=== PATIENT | female | born 1950 | race Caucasian/White ===

== ENCOUNTER 2017-09-26 12:39 | Outpatient (CLI) | payer MEDICARE ==
[2017-09-26 18:52] LABS: ALBUMIN 4.1 g/dL (3.2-5.5); ALBUMIN/GLOBULIN RATIO 1.2 (1.0-2.2); BILIRUBIN,TOTAL 0.4 mg/dL (0.2-1.0); CALCIUM 9.4 mg/dL (8.5-10.3); CREATININE 0.9 mg/dL (0.4-1.0); TOTAL PROTEIN 7.6 g/dL (6.7-8.2)
[2017-09-26 19:05] LABS: BASOPHILS # (AUTO) 0.1 10^3/uL (0.0-0.1); BASOPHILS % (AUTO) 0.8 %; EOSINOPHILS # (AUTO) 0.2 10^3/uL (0.0-0.7); EOSINOPHILS % (AUTO) 1.7 %; HGB - HEMOGLOBIN 13.7 g/dL (12.0-16.0); LYMPHOCYTES # (AUTO) 2.2 10^3/uL (1.5-3.5); LYMPHOCYTES % (AUTO) 24.4 %; MEAN CORPUSCULAR HEMOGLOBIN 31.1 pg (27.0-31.0); MEAN CORPUSCULAR HGB CONC 32.8 g/dL (32.0-36.0); MEAN CORPUSCULAR VOLUME 94.9 fL (81.0-99.0); MEAN PLATELET VOLUME 8.2 fL (7.9-10.8); MONOCYTES # (AUTO) 0.5 10^3/uL (0.0-1.0); MONOCYTES % (AUTO) 5.6 %; NEUTROPHILS # (AUTO) 6.1 10^3/uL (1.5-6.6); NEUTROPHILS % (AUTO) 67.5 %; PLT - PLATELET COUNT 257 10^3/uL (130-450); RED BLOOD COUNT 4.42 10^6/uL (4.20-5.40); RED CELL DISTRIBUTION WIDTH 13.8 % (12.0-15.0); WHITE BLOOD COUNT 9.1 x10^3/uL (4.8-10.8)
== END 2017-09-26 12:40 | disposition home or self-care (01) ==
LOC: LAB.F 12:39
PROVIDERS: ATTEND Physician Assistant Medical
DX: Z51.81 Encounter for therapeutic drug level monitoring (principal); Z79.899 Other long term (current) drug therapy
CPT/HCPCS: 36415; 80053; 85025

== ENCOUNTER 2017-09-26 15:25 | Outpatient (CLI) | payer MEDICARE, OTHER ==
--- NOTE | 2017-09-29 09:55 | XRAY Report ---
EXAM: LEFT KNEE RADIOGRAPHY EXAM DATE: 09/26/2017 03:52 PM. CLINICAL HISTORY: Knee joint pain, left. COMPARISON: None. TECHNIQUE: 3 views. FINDINGS: Bones: No fractures or bony destructive lesions. Joints: There is mild to moderate diminishment of joint space with small to moderate amount of knee j oint effusion. No subluxations. Soft Tissues: There is mild soft tissue swelling or thickening along the lateral collateral ligament. There are also 2 small calcified bodies over the upper part of the left lateral collateral ligaments . IMPRESSION: 1. Mild to moderate osteoarthritis with small to moderate amount of knee joint fusion. 2. Soft tissue swelling or thickening along the lateral collateral ligament, suggesting soft tissue i njury and also 2 small degenerated calcified bodies abutting the upper part of the lateral collateral ligament. [facility] Referring Provider Line: [phone] SITE ID: [id number]
== END 2017-09-26 15:26 | disposition home or self-care (01) ==
LOC: DI.S 15:25
PROVIDERS: ATTEND Physician Assistant Medical
DX: M17.12 Unilateral primary osteoarthritis, left knee (principal); M25.462 Effusion, left knee; Z51.81 Encounter for therapeutic drug level monitoring; Z79.899 Other long term (current) drug therapy
CPT/HCPCS: 36415; 80053; 85025

== ENCOUNTER 2017-10-23 14:24 | Outpatient (CLI) | payer MEDICARE ==
--- NOTE | 2017-10-23 16:42 | MRI Report ---
EXAM: LEFT KNEE MRI WITHOUT CONTRAST EXAM DATE: 10/23/2017 03:49 PM. CLINICAL HISTORY: Left knee joint pain. Previous twisting injury one month ago. Intermittent swelling . Weakness. COMPARISON: Left knee radiography from 09/26/2017. TECHNIQUE: Multiplanar, multisequence T1-weighted and fluid-sensitive sequences of the knee without c ontrast. Other: None. FINDINGS: Bones and articular cartilage: Marginal osteophytes at the femoral condyles, tibial plateau, and summers lla. Tiny subcortical cysts and marrow edema at the median aspect of the tibial plateau. Grade 2 sharath dromalacia at the medial femoral condyle and medial tibial plateau. Grade 2 chondromalacia at the lat eral tibial plateau. Grade 3-4 chondromalacia at the medial ridge and lateral facet of the patella. M inimal subchondral marrow edema at the lateral patellar facet. No patellar subluxation. Grade 2 chond romalacia at the lateral trochlear facet. Enthesophytes at the anterior-superior and anterior-inferio r aspects of the patella. Medial Meniscus: The medial meniscus is intact. Lateral Meniscus: Small horizontal tear at the inner third of the lateral meniscal body (coronal imag es 16-19). Degenerative signal within the anterior horn. Cruciate Ligaments: Small ganglion within the anterior cruciate ligament. No cruciate ligament tear. Collateral Ligaments: The medial collateral and lateral collateral ligamentous structures are intact. There is a 6 x 4 x 5 mm calcification adjacent to the proximal end of the fibular collateral ligamen t. Tendons: The quadriceps, patellar, semimembranosus, and popliteus tendons are unremarkable. Musculature: No edema or fatty atrophy. Other: Small joint effusion. Small popliteal cyst. No loose bodies. The medial and lateral retinacul a are intact. There is an approximately 3 x 1.8 x 0.7 cm mildly lobular and multiseptated T2 hyperint ense and T1 hypointense mass within the most inferomedial aspect of the infrapatellar fat pad. There are a few small vessels adjacent to the mass. IMPRESSION: 1. Tricompartmental osteoarthritis which is most significant at the patellofemoral compartment. 2. Small focal horizontal tear of the inner third of the lateral meniscal body. Degenerative signal w ithin the anterior horn lateral meniscus. 3. Small ganglion within the anterior cruciate ligament. No cruciate ligament tear. 4. A 6 x 4 x 5 mm calcification adjacent to the proximal end of the fibular collateral ligament which may be from previous old injury. The collateral ligaments are intact. 5. Small joint effusion and popliteal cyst. 6. A 3 x 1.8 x 0.7 cm mildly lobular and multiseptated mass within the most inferomedial aspect of th e infrapatellar fat pad. Differential would include a hemangioma or ganglion. If warranted, further c haracterization of the mass with T1-weighted pre-and postcontrast images may be helpful. [facility] MUSCULOSKELETAL [facility]IOLOGY SECTION Referring Provider Line: [phone] SITE ID: [id number]
== END 2017-10-23 14:25 | disposition home or self-care (01) ==
LOC: DI 14:24
PROVIDERS: ATTEND Physician Assistant Medical
DX: M17.12 Unilateral primary osteoarthritis, left knee (principal); S83.282A Other tear of lateral meniscus, current injury, left knee, initial encounter; M67.462 Ganglion, left knee; M71.22 Synovial cyst of popliteal space [Baker], left knee; M25.462 Effusion, left knee; R22.42 Localized swelling, mass and lump, left lower limb

== ENCOUNTER 2017-11-04 13:21 | Outpatient (CLI) | payer MEDICARE ==
--- NOTE | 2017-11-05 16:06 | DEXA Report ---
DEXA: 11/04/2017 CLINICAL INDICATION: Postmenopausal. TECHNIQUE: Dual energy x-ray absorptiometry (DXA) was performed on a VM Discovery system. Regions measured are the AP spine, femoral neck, and, if needed, forearm. COMPARISON: None. In accordance with the International Society for Clinical Densitometry (ISCD) guidelines, data from previous exams may be reanalyzed using current recommendations and techniques. This is done to allow a more accurate basis for comparison with the current study. FINDINGS: The data for the lumbar spine is as follows: REGION BMD (g/cm/cm) T-SCORE Z-SCORE L1 1.582 3.8 4.2 L2 1.544 2.9 3.3 L3 1.481 2.3 2.8 L4 1.322 1.0 1.5 TOTAL 1.464 2.4 2.8 NOTE: All evaluable vertebrae are used for classification. The data for the hip is as follows: REGION BMD (g/cm/cm) T-SCORE Z-SCORE Neck 1.057 0.1 1.0 TOTAL 1.208 1.6 2.1 NOTE: The femoral neck or total proximal femur, whichever is lowest, is used for classification. IMPRESSION: THE WHO CLASSIFICATION BASED ON THE INTERNATIONAL REFERENCE STANDARD IS NORMAL. THE FRACTURE RISK IS NOT INCREASED. RECOMMENDATION: Patients with diagnosis of osteoporosis or osteopenia should have regular bone mineral density assessment. For those eligible for Medicare, routine testing is allowed once every 2 years. Testing frequency can be increased for patients who have rapidly progressing disease or for those who are receiving medical therapy to restore bone mass. COMMENT: World Health Organization (WHO) definitions for osteoporosis and osteopenia: NORMAL BMD: T-score at 1.0 or higher, fracture risk is low. OSTEOPENIA BMD: T-score between 1.0 and -2.5, fracture risk is increased. OSTEOPOROSIS BMD: T-score at 2.5 or lower, fracture risk high. National Osteoporosis Foundation recommends: 1. Obtain adequate dietary calcium (at least 1200 mg per day) and vitamin D (400 -800 international units per day). 2. Participate, as appropriate, in regular weightbearing and muscle- strengthening exercise. 3. Avoid tobacco use and reduce alcohol and caffeine intake. 4. For more detailed information see the website at www.NOF.org. TD: 11/04/2017 18:05 [place]
== END 2017-11-04 13:22 | disposition home or self-care (01) ==
LOC: DI 13:21
PROVIDERS: ATTEND Physician Assistant Medical
DX: Z13.820 Encounter for screening for osteoporosis (principal); Z78.0 Asymptomatic menopausal state
CPT/HCPCS: 77080

== ENCOUNTER 2017-11-04 13:23 | Outpatient (CLI) | payer MEDICARE ==
--- NOTE | 2017-11-05 13:18 | Mammography Report ---
DIGITAL SCREENING MAMMOGRAM: 11/04/2017 CLINICAL INDICATION: A 67-year-old nulliparous patient, for screening. COMPARISON: 03/2007. TECHNIQUE: Routine CC and MLO projections were obtained of the breasts. FINDINGS: The breasts demonstrate scattered fibroglandular densities bilaterally. Coarse and punctate, typically benign calcifications are present. There is a possible nodule in the right central breast. Further evaluation with spot compression views and possible ultrasound is recommended. No mammographically suspicious findings are appreciated in the left breast. IMPRESSION: INCOMPLETE EXAMINATION. RECOMMENDATION: ADDITIONAL EVALUATION OF THE RIGHT BREAST ABOVE. BIRADS CATEGORY 0-INCOMPLETE. STANDARD QUALIFYING STATEMENTS: 1. This examination was reviewed with the aid of Computer-Aided Detection (CAD). 2. A negative or benign imaging report should not delay biopsy if clinically suspicious findings are present. Consider surgical consultation if warranted. More than 5% of cancers are not identified by imaging. 3. Dense breasts may obscure an underlying neoplasm. TD: 11/05/2017 13:18
== END 2017-11-04 13:24 | disposition home or self-care (01) ==
LOC: DI 13:23
PROVIDERS: ATTEND Physician Assistant Medical
DX: Z12.31 Encounter for screening mammogram for malignant neoplasm of breast (principal); R92.8 Other abnormal and inconclusive findings on diagnostic imaging of breast
CPT/HCPCS: 77067

== ENCOUNTER 2017-11-27 10:10 | Outpatient (CLI) | payer MEDICARE ==
--- NOTE | 2017-11-27 17:39 | Mammography Report ---
DIGITAL DIAGNOSTIC RIGHT MAMMOGRAM: 11/27/2017 CLINICAL INDICATION: Possible nodule on screening examination. TECHNIQUE: Right true lateral and spot compression views. COMPARISON: 11/04/2017, 04/14/2007. FINDINGS: The right breast again demonstrates scattered fibroglandular densities. The nodule in question persists on additional compression in the right retroareolar breast, measuring approximately 9 mm in diameter. No associated calcifications are appreciated. The margins are mostly well circumscribed. Please also refer to right breast ultrasound of the same day. IMPRESSION: SUSPICIOUS ABNORMALITY, WITH A SOLID-APPEARING NODULE ON ULTRASOUND, CORRELATING WITH THE MAMMOGRAPHIC ABNORMALITY. RECOMMENDATION: Biopsy. The nodule appears amenable to ultrasound-guided core needle biopsy. BIRADS category 4 suspicious abnormality. Results and recommendations discussed with the patient at the time of the examination, and called to the office of Danielle Arriaga PA-C, on 11/27/2017. Biopsy is scheduled for 12/08/2017 at 9:45 a.m. STANDARD QUALIFYING STATEMENTS 1. This examination was reviewed with the aid of Computed-Aided Detection (CAD). 2. A negative or benign imaging report should not delay biopsy if clinically suspicious findings are present. Consider surgical consultation if warranted. More than 5% of cancers are not identified by imaging. 3. Dense breasts may obscure an underlying neoplasm. TD: 11/27/2017 17:37
--- NOTE | 2017-11-27 17:53 | Ultrasound Report ---
RIGHT BREAST ULTRASOUND: 11/27/2017 CLINICAL INDICATION: Persistent nodule on diagnostic mammogram. TECHNIQUE: Real-time scanning was performed with insurance account representative static images obtained. Ultrasound of the central right breast was performed. In the subareolar region, there is a hypoechoic circumscribed nodule, measuring 8 x 7 x 7 mm. The margins appear circumscribed. No definite internal vascularity is seen. IMPRESSION: SOLID APPEARING NODULE IN THE RIGHT RETROAREOLAR BREAST, CORRELATING WITH THE MAMMOGRAPHIC ABNORMALITY. RECOMMENDATION: Biopsy. The nodule appears amenable to ultrasound-guided core needle biopsy. BIRADS category 4 suspicious abnormality. Results and recommendations discussed with the patient at the time of the examination, and called to the office of Danielle Arriaga PA-C on 11/27/2017. Biopsy is scheduled for 12/08/2017 at 9:45 a.m. TD: 11/27/2017 17:52
== END 2017-11-27 10:11 | disposition home or self-care (01) ==
LOC: DI 10:10
PROVIDERS: ATTEND Physician Assistant Medical
DX: N63.41 Unspecified lump in right breast, subareolar (principal)
CPT/HCPCS: 76642

== ENCOUNTER 2017-12-08 09:30 | Outpatient (CLI) | payer MEDICARE ==
--- NOTE | 2017-12-08 11:53 | Ultrasound Report ---
ULTRASOUND GUIDED CORE NEEDLE BIOPSY RIGHT BREAST: 12/08/2017 CLINICAL INDICATION: Target nodule measuring 9 mm in the retroareolar right breast. TECHNIQUE/FINDINGS: Informed consent was obtained. Using standard aseptic technique, both 1% lidocaine and Sensorcaine were injected into the right breast for local anesthesia. A small caro was made in the skin with a #11 blade. A 12-gauge Celero vacuum-assisted device was used to obtain 3 specimens. A Celero marker was placed into the biopsy cavity under ultrasound guidance. The patient was taken to a separate mammography machine and a 2-view digital mammogram was performed, documenting the marker in the expected location and no significant postbiopsy hematoma. The wound was dressed and ice applied. The patient was observed for approximately 15 minutes, then was discharged from [facility] in good condition following instructions on wound care and obtaining biopsy results. The tissue was sent for histologic analysis. IMPRESSION: 1. ULTRASOUND-GUIDED BIOPSY OF THE RIGHT BREAST. 2. AN ADDENDUM WILL BE MADE TO THIS REPORT WHEN PATHOLOGY IS REVIEWED TO ESTABLISH CONCORDANCE. TD: 12/08/2017 11:51
[2017-12-08] MEDS ORDERED: LIDOCAINE 1% 50 ML MDV TD ONE (12:42)
[2017-12-08] MEDS ORDERED: BUPIVACAINE 0.5%-EPI 1:200000 PF 10 ML VIAL SUBQ STA (13:23)
== END 2017-12-08 09:31 | disposition home or self-care (01) ==
LOC: DI 09:30
PROVIDERS: ATTEND Physician Assistant Medical
DX: N60.21 Fibroadenosis of right breast (principal)
CPT/HCPCS: 19083

== ENCOUNTER 2018-12-31 14:38 | Outpatient (CLI) | payer MEDICARE | END 2018-12-31 14:39 | disposition short-term general hospital (02) | LOC: EMS 14:38 | PROVIDERS: ATTEND Surgery | DX: R07.89 Other chest pain (principal); M79.602 Pain in left arm | CPT/HCPCS: A0425; A0427 ==

== ENCOUNTER 2019-04-02 09:07 | Outpatient (CLI) | payer MEDICARE ==
[2019-04-02 18:52] LABS: ALBUMIN/GLOBULIN RATIO 1.2 (1.0-2.2); ALKALINE PHOSPHATASE 65 IU/L (42-121); ALT ALANINE AMINOTRANSFERASE 20 IU/L (10-60); AST ASPARTATE AMINOTRANSFERASE 17 IU/L (10-42); BILIRUBIN,TOTAL 0.6 mg/dL (0.2-1.0); BUN - BLOOD UREA NITROGEN 18 mg/dL (6-20); CALCIUM 9.5 mg/dL (8.5-10.3); CARBON DIOXIDE - CO2 28 mmol/L (21-32); CHLORIDE 104 mmol/L (101-111); CHOL/HDL RATIO 2.7 (<4.4); CHOLESTEROL 124 mg/dL; CREATININE 0.9 mg/dL (0.4-1.0); GFR - MDRD 62 (>89); GLUCOSE 89 mg/dL (70-100); HDL CHOLESTEROL 46 mg/dL; LDL CHOLESTEROL,CALCULATED 57 mg/dL; LDL/HDL RATIO 1.2 (<4.4); SODIUM 143 mmol/L (135-145); TOTAL PROTEIN 7.3 g/dL (6.7-8.2); VLDL CHOLESTEROL 21 mg/dL
== END 2019-04-02 09:08 | disposition home or self-care (01) ==
LOC: LAB.S 09:07
PROVIDERS: ATTEND Physician Assistant Medical
DX: I25.810 Atherosclerosis of coronary artery bypass graft(s) without angina pectoris (principal); Z51.81 Encounter for therapeutic drug level monitoring; Z79.899 Other long term (current) drug therapy
CPT/HCPCS: 36415; 80053; 80061; 83721

== ENCOUNTER 2019-10-15 13:58 | Outpatient (CLI) | payer MEDICARE ==
--- NOTE | 2019-10-18 12:16 | Mammography Report ---
Reason: ROUTINE MAMMO Procedure Date: 10/15/2019 Accession Number: [id number] / [id number] Procedure: [facility] - Screening Mammo w/Sterling CPT Code: Final Report FULL RESULT: EXAM: Screening Mammo w/Sterling DATE: 10/15/2019 2:34 PM CLINICAL HISTORY: Screening encounter. History of nulliparity. Personal history of benign right breast biopsy. TECHNIQUE: (B) - Bilateral CC and MLO views were obtained. COMPARISON: 12/08/2017 through 11/04/2017. PARENCHYMAL PATTERN: (A) - The breast(s) demonstrate(s) scattered fibroglandular densities. FINDINGS: A biopsy clip is seen in the right breast. There are coarse typically mild calcifications as well as large rodlike calcifications in the right breast. There are no suspicious masses, calcifications, or areas of distortion. IMPRESSION: Benign findings. BI-RADS category 2. RECOMMENDATION: (ANNUAL) - Recommend routine annual screening mammography. BI-RADS CATEGORY: (2) - Benign Findings. STANDARD QUALIFYING STATEMENTS: 1. This examination was not reviewed with the aid of Computer-Aided Detection (CAD). 2. A negative or benign imaging report should not preclude biopsy if clinically suspicious findings are present. 3. Dense breasts may obscure an underlying neoplasm. 4. This examination was reviewed with the aid of 3D breast imaging (tomosynthesis).
== END 2019-10-15 13:59 | disposition home or self-care (01) ==
LOC: DI 13:58
PROVIDERS: ATTEND Physician Assistant Medical
DX: Z12.31 Encounter for screening mammogram for malignant neoplasm of breast (principal)
CPT/HCPCS: 77063; 77067

== ENCOUNTER 2019-10-22 07:00 | Outpatient (CLI) | payer MEDICARE | END 2019-10-22 23:59 | disposition home or self-care (01) | LOC: LAB.R 07:00 | PROVIDERS: ATTEND Physician Assistant Medical | DX: Z12.11 Encounter for screening for malignant neoplasm of colon (principal) | CPT/HCPCS: 82274 ==

== ENCOUNTER 2019-10-22 09:23 | Outpatient (CLI) | payer MEDICARE ==
[2019-10-22 18:32] LABS: ALBUMIN/GLOBULIN RATIO 1.3 (1.0-2.2); ALKALINE PHOSPHATASE 54 IU/L (42-121); ALT ALANINE AMINOTRANSFERASE 18 IU/L (10-60); AST ASPARTATE AMINOTRANSFERASE 17 IU/L (10-42); BILIRUBIN,TOTAL 0.6 mg/dL (0.2-1.0); BUN - BLOOD UREA NITROGEN 25 mg/dL (6-20); CARBON DIOXIDE - CO2 26 mmol/L (21-32); CHLORIDE 101 mmol/L (101-111); CHOL/HDL RATIO 4.2 (<4.4); CHOLESTEROL 220 mg/dL; CREATININE 1.1 mg/dL (0.4-1.0); GFR - MDRD 49 (>89); GLUCOSE 94 mg/dL (70-100); HDL CHOLESTEROL 53 mg/dL; LDL CHOLESTEROL,CALCULATED 147 mg/dL; LDL/HDL RATIO 2.8 (<4.4); SODIUM 136 mmol/L (135-145); TOTAL PROTEIN 7.1 g/dL (6.7-8.2); VLDL CHOLESTEROL 20 mg/dL
[2019-10-22 18:37] LABS: CREATININE,URINE 237.7 mg/dL; MICROALBUM/CREATININE RATIO,UR 5.5 ug/mg (<30.0); MICROALBUMIN,URINE 1.3 mg/dL (0-300.0)
[2019-10-22 19:29] LABS: HB2 TOTAL 14.5 g/dL; HEMOGLOBIN A1C 0.56 g/dL; HEMOGLOBIN A1C % 5.7 % (4.6-6.2)
== END 2019-10-22 09:24 | disposition home or self-care (01) ==
LOC: LAB.S 09:23
PROVIDERS: ATTEND Physician Assistant Medical
DX: I25.810 Atherosclerosis of coronary artery bypass graft(s) without angina pectoris (principal); Z86.39 Personal history of other endocrine, nutritional and metabolic disease; Z12.11 Encounter for screening for malignant neoplasm of colon
CPT/HCPCS: 36415; 80053; 80061; 82043; 82570; 83036; 83721

== ENCOUNTER 2020-08-23 10:22 | Outpatient (CLI) | payer MEDICARE ==
[2020-08-23 16:39] LABS: CHOL/HDL RATIO 3.7 (<4.4); CHOLESTEROL 198 mg/dL; HDL CHOLESTEROL 53 mg/dL; LDL CHOLESTEROL,CALCULATED 114 mg/dL; LDL/HDL RATIO 2.2 (<4.4); VLDL CHOLESTEROL 31 mg/dL
== END 2020-08-23 10:23 | disposition home or self-care (01) ==
LOC: LAB.S 10:22
PROVIDERS: ATTEND Internal Medicine Cardiovascular Disease
DX: E78.49 Other hyperlipidemia (principal)
CPT/HCPCS: 36415; 80061; 83721

== ENCOUNTER 2021-09-25 08:50 | Outpatient (CLI) | payer MEDICARE ==
[2021-09-25 10:08] LABS: CALCIUM 9.4 mg/dL (8.5-10.3); CREATININE 1.2 mg/dL (0.4-1.0); POTASSIUM 4.4 mmol/L (3.5-5.0)
--- NOTE | 2021-09-25 12:56 | XRAY Report ---
PROCEDURE: Hip w/Pelvis 2-3V RT INDICATIONS: RIGHT HIP PX TECHNIQUE: AP pelvis with lateral view(s) of the right hip(s). COMPARISON: None. FINDINGS: Bones: No acute fractures or dislocations. Pelvic ring appears intact. No suspicious bony lesions. There are moderate spondylitic changes of the lower lumbar spine. Mild-moderate degenerative change s of the left hip joint. There is severe osteoarthrosis of the right hip joint with significant loss of joint space as well as subchondral sclerosis and lucency involving both the acetabular and femoral side of the joint space. Prominent marginal osteophytes. Soft tissues: The visualized bowel gas pattern is normal. No suspicious soft tissue calcifications. IMPRESSION: Right hip without acute fracture or dislocation. Severe osteoarthrosis of the right femoroacetabular joint. Mild-moderate osteoarthrosis of the left hip Reviewed by: Porter Christine MD on 09/25/2021 12:45 PM PST Approved by: Porter Christine MD on 09/25/2021 12:45 PM PST Station ID: [id number]
== END 2021-09-25 08:51 | disposition home or self-care (01) ==
LOC: DI 08:50
PROVIDERS: ATTEND Internal Medicine
DX: M16.0 Bilateral primary osteoarthritis of hip (principal); I25.810 Atherosclerosis of coronary artery bypass graft(s) without angina pectoris; E78.49 Other hyperlipidemia; Z78.9 Other specified health status
CPT/HCPCS: 36415; 80048

== ENCOUNTER 2022-03-04 12:30 | Outpatient (CLI) | payer MEDICARE ==
--- NOTE | 2022-03-05 12:40 | Mammography Report ---
BILATERAL DIGITAL SCREENING MAMMOGRAM 3D/2D: 03/04/2022 CLINICAL: Routine screening. Comparison is made to exams dated: 10/15/2019 mammogram, 12/08/2017 mammogram, 11/04/2017 mammogram, an d 11/27/2017 mammogram - [facility]. There are scattered fibroglandular elements in both breasts. There is a biopsy clip in the right breast. No significant masses, calcifications, or other findings are seen in either breast. There has been no significant interval change. IMPRESSION: NEGATIVE There is no mammographic evidence of malignancy. A 1 year screening mammogram is recommended. This exam was interpreted at Station ID: [id number]. NOTE: For mammograms, a report in lay terms will be sent to the patient. Approximately 15% of breast malignancies will not be visualized mammographically. In the management of a palpable breast mass, a negative mammogram must not discourage biopsy of a clinically suspicious lesion. Electronically Signed By: Peng bee/jimena:03/04/2022 14:05:36 ACR BI-RADS Category 1: Negative 3341F PARENCHYMAL PATTERN: (A) - The breast(s) demonstrate(s) scattered fibroglandular densities. BI-RADS CATEGORY: (1) - 1 RECOMMENDATION: (ANNUAL) - Recommend routine annual screening mammography. [id number] 1 year screening LATERALITY: (B)
== END 2022-03-04 12:31 | disposition home or self-care (01) ==
LOC: DI.N 12:30
PROVIDERS: ATTEND Internal Medicine
DX: Z12.31 Encounter for screening mammogram for malignant neoplasm of breast (principal)

== ENCOUNTER 2024-01-12 13:50 | Outpatient (CLI) | payer MEDICARE ==
--- NOTE | 2024-01-13 09:52 | Mammography Report ---
BILATERAL DIGITAL SCREENING MAMMOGRAM 3D/2D: 01/12/2024 CLINICAL: Routine screening. Comparison is made to exams dated: 03/04/2022 mammogram, 10/15/2019 mammogram, 12/08/2017 mammogram, ultrasound, 11/27/2017 ultrasound, and 11/27/2017 mammogram - [facility]. There are scattered areas of fibroglandular density in both breasts (category b / 25%-50% glandular t issue). There are benign calcifications in the right breast. There also is a biopsy clip in the right breast . No significant masses, calcifications, or other findings are seen in either breast. There has been no significant interval change. IMPRESSION: BENIGN There is no mammographic evidence of malignancy. A 1 year screening mammogram is recommended. Based on the Tyrer Cuzick model (a risk assessment model) the patient's lifetime risk is 7.2% and her 10 year risk is 5.9%. According to the ACR, ACS, and NCCN guidelines, an annual breast MRI exam raeann g with mammogram is recommended if the patient's lifetime risk is 20% or greater. This exam was interpreted at Station ID: [id number]. NOTE: For mammograms, a report in lay terms will be sent to the patient. Approximately 15% of breast malignancies will not be visualized mammographically. In the management of a palpable breast mass, a negative mammogram must not discourage biopsy of a clinically suspicious lesion. Electronically Signed By: Noelle munoz/jimena:01/12/2024 15:56:32 letter sent: No_Letter ACR BI-RADS Category 2: Benign Finding(s) 3342F PARENCHYMAL PATTERN: (A) - The breast(s) demonstrate(s) scattered fibroglandular densities. BI-RADS CATEGORY: (2) - 2 RECOMMENDATION: (ANNUAL) - Recommend routine annual screening mammography. [id number] 1 year screening LATERALITY: (B)
== END 2024-01-12 13:51 | disposition home or self-care (01) ==
LOC: DI 13:50
PROVIDERS: ATTEND Internal Medicine
DX: Z12.31 Encounter for screening mammogram for malignant neoplasm of breast (principal); R92.323 Mammographic fibroglandular density, bilateral breasts; R92.1 Mammographic calcification found on diagnostic imaging of breast